=== PATIENT | male | born 1990 | race Caucasian/White ===

== ENCOUNTER 2019-09-07 09:15 | Inpatient (IN) | payer OTHER ==
[2019-09-07 09:56] VITALS: BMI 39.0
--- NOTE | 2019-09-07 11:23 | HP ---
COWS - Scale Resting Pulse: 4= MT > 121 Sweatin= Chills/Flushing Restless Observation: 1= Difficult to Sit Still Pupil Size: 1= Pupils >than Normal Bone or Joint Aches: 2= Severe Diffuse Aches Runny Nose/ Eye Tearin= Runny Nose/Eyes GI Upset > 30mins: 2= Nausea/Diarrhea Tremor Observation: 2= Slight Tremor Visible Yawning Observation: 1= 1-2x During Session Anxiety or Irritability: 2=Irritable/Anxious Goose Flesh Skin: 0=Smooth Skin COWS Score: 18 CIWA Score - Admission Criteria OASAS Guidelines: Admission for Medically Managed Detox: Requires at least one of the followin. CIWA greater than 12 2. Seizures within the past 24 hours 3. Delirium tremens within the past 24 hours 4. Hallucinations within the past 24 hours 5. Acute intervention needed for co occurring medical disorder 6. Acute intervention needed for co occurring psychiatric disorder 7. Severe withdrawal that cannot be handled at a lower level of care (continued vomiting, continued diarrhea, abnormal vital signs) requiring intravenous medication and/or fluids 8. Admitting History and Physical - Smoking History Smoking history: Unknown if ever smoked Admission ROS [facility] Chief Complaint: i need help to stop using oxycodone,metamphetamine,marijuana,cocaine Allergies/Adverse Reactions: Allergies Allergy/AdvReac Type Severity Reaction Status Date / Time ciprofloxacin AdvReac Rash Verified 09/07/19 09:46 metronidazole [From Flagyl] AdvReac Rash Verified 09/07/19 09:46 History of Present Illness: this 29 years old male with oxycodone,cocaine,marijuana and methamphetamine, seeking help to stop ,would like to better himself, last admission in [facility]09/27/10 to 10/02/10 denies seizure syncope in the past nicotine dependence hypertension no medication anxiety,depression,insomnia plan for rehab after detox no significant period of sobriety Exam Limitations: No Limitations - Ebola screening Have you traveled outside of the country in the last 21 days: No (N) Have you had contact with anyone from an Ebola affected area: No Do you have a fever: No - Review of Systems Constitutional: Chills, Night Sweats, Changes in sleep EENT: reports: Tearing, Nose Congestion Respiratory: reports: No Symptoms reported Cardiac: reports: Palpitations GI: reports: Diarrhea, Nausea, Abdominal cramping : reports: No Symptoms Reported Musculoskeletal: reports: Back Pain, Joint Pain, Muscle Pain, Joint Stiffness Integumentary: reports: Dryness Neuro: reports: Headache, Tremors Endocrine: reports: No Symptoms Reported Hematology: reports: No Symptoms Reported Psychiatric: reports: Anxious, Depressed, other (insomnia) Other Systems: Reviewed and Negative Patient History - Patient Medical History Hx Anemia: No Hx Asthma: No Hx Chronic Obstructive Pulmonary Disease (COPD): No Hx Cancer: No Hx Cardiac Disorders: No Hx Congestive Heart Failure: No Hx Hypertension: Yes (no medication) Hx Hypercholesterolemia: No Hx Pacemaker: No HX Cerebrovascular Accident: No Hx Seizures: No Hx Dementia: No Hx Diabetes: No Hx Gastrointestinal Disorders: No Hx Liver Disease: No Hx Genitourinary Disorders: No Hx Sexually Transmitted Disorders: No Hx Renal Disease (ESRD): No Hx Thyroid Disease: No Hx Human Immunodeficiency Virus (HIV): No (last 2017 negagive) Hx Hepatitis C: No Hx Depression: Yes (anxiety,insomnia) Hx Suicide Attempt: No Hx Bipolar Disorder: No Hx Schizophrenia: No Other Medical History: no suicidal.no homicidal - Patient Surgical History Hx Appendectomy: Yes (2014 at [facility]) - PPD History Previous Implant?: Yes Documented Results: Negative w/o proof Implanted On Prior [facility] Admission?: No PPD to be Administered?: No - Smoking Cessation Smoking history: Current every day smoker Have you smoked in the past 12 months: Yes Cigars Per Day: 0 Hx Chewing Tobacco Use: No Initiated information on smoking cessation: Yes 'Breaking Loose' booklet given: 09/07/19 - Substance & Tx. History Hx Alcohol Use: No Hx Substance Use: Yes Substance Use Type: Cocaine, Marijuana, Opiates Hx Substance Use Treatment: Yes (09/27/10 to 10/02/10 [facility]) - Substances abused Marijuana/Hashish Substance route: Smoking Frequency: 3-6 times per week Amount used: 1 GRAM Age of first use: 13 Date of last use: 09/05/19 Methamphetamine Substance route: Smoking Frequency: 1-3 times last 30 days Amount used: 2-3 GRAMS Age of first use: 28 Date of last use: 09/06/19 Other Other (specify): OXYCODONE Substance route: Oral Frequency: Daily Amount used: 80 MG TO 100 MG Age of first use: 19 Date of last use: 09/06/19 Cocaine Substance route: Injection Frequency: 3-6 times per week Amount used: 3 GRAMS Age of first use: 13 Date of last use: 08/31/19 Admission Physical Exam [facility] - Vital Signs Vital Signs: Vital Signs - 24 hr 09/07/19 09:47 Temperature 98.0 F Pulse Rate 133 H Respiratory 20 Rate Blood Pressure 170/85 - Physical General Appearance: Yes: Moderate Distress, Tremorous, Irritable, Sweating, Anxious HEENTM: Yes: Normal ENT Inspection, SALMA, Pharynx Normal Respiratory: Yes: Lungs Clear, Normal Breath Sounds, No Respiratory Distress Neck: Yes: Within Normal Limits, Supple, Trachea in good position Breast: Yes: Within Normal Limits Cardiology: Yes: Tachycardia Abdominal: Yes: Within Normal Limits, Normal Bowel Sounds, Non Tender, Soft Genitourinary: Yes: Within Normal Limits Back: Yes: Muscle Spasm Musculoskeletal: Yes: Within Normal Limits, Back pain, Muscle Pain Extremities: Yes: Tremors Neurological: Yes: retail equipment associate II-XII NML intact, Fully Oriented, Alert, Motor Strength 5/5 Integumentary: Yes: Dry Lymphatic: Yes: Within Normal Limits - Diagnostic (1) Opioid dependence with withdrawal Current Visit: Yes Status: Acute (2) Cocaine dependence Current Visit: Yes Status: Acute (3) Cannabis dependence Current Visit: Yes Status: Acute (4) Methamphetamine abuse Current Visit: Yes Status: Acute (5) Syncope Current Visit: Yes Status: Acute (6) Tachycardia Current Visit: Yes Status: Acute (7) Hypertension Current Visit: Yes Status: Acute (8) Dehydration Current Visit: Yes Status: Acute (9) Insomnia secondary to depression with anxiety Current Visit: Yes Status: Acute (10) Nicotine dependence Current Visit: Yes Status: Acute Cleared for Admission [facility] - Detox or Rehab [facility] Level of Care: Medically Managed Detox Regimen/Protocol: Methadone Breathalyzer - Breathalyzer Breathalyzer: 0 Urine Drug Screen - Test Device Lot number: [id number] Expiration date: 03/12/21 - Control Is test valid?: Yes - Results Drug screen NEGATIVE: No Urine drug screen results: THC-Marijuana, MET-Methamphetamine, AMP-Amphetamines , MDMA-Ecstasy Inpatient Rehab Admission - Rehab Decision to Admit Inpatient rehab admission?: No
[2019-09-07] MEDS ORDERED: MENTHOL/PHENOL 1 EACH UD MM PRN (11:40)
[2019-09-07] MEDS ORDERED: ACETAMINOPHEN 325 MG TABLET (FP) PO PRN ×2 (11:40)
[2019-09-07] MEDS ORDERED: MAGNESIUM HYDROX 2400MG/30ML ORAL SUSPENSION 30 ML CUP PO PRN (11:40)
[2019-09-07] MEDS ORDERED: NICOTINE POLACRILEX 2 MG GUM BUC PRN (11:40)
[2019-09-07] MEDS ORDERED: MAGNESIUM CITRATE 300 ML BOTTLE PO PRN (11:40)
[2019-09-07] MEDS ORDERED: cloNIDine HCL 0.1 MG TABLET PO PRN (11:40)
[2019-09-07] MEDS ORDERED: IBUPROFEN 400 MG TABLET (FP) PO PRN (11:40)
[2019-09-07] MEDS ORDERED: BISMUTH SUBSALICYLATE 524 MG/30 ML UD PO PRN (11:40)
[2019-09-07] MEDS ORDERED: cloNIDine HCL 0.1 MG TABLET PO ONE (11:48)
--- NOTE | 2019-09-07 12:34 | PN ---
BHS Progress Note Note: urine fro drug screen showed positive for thc,methamphetamine,oxycodone,mdma
[2019-09-07] MEDS: diazePAM 5 MG TABLET PO PRN ×2 (12:46→22:43)
[2019-09-07] MEDS: NICOTINE 21 MG/24 HOURS TOPICAL PATCH TD SCH (12:46)
[2019-09-07] MEDS ORDERED: METHADONE HCL 10 MG TABLET (FOR DETOX USE ONLY) PO ONE (13:30)
--- NOTE | 2019-09-07 14:09 | EKG ---
Test Reason : Blood Pressure : / mmHG Vent. Rate : 123 BPM Atrial Rate : 123 BPM P-R Int : 150 ms QRS Dur : 078 ms QT Int : 310 ms P-R-T Axes : 067 012 033 degrees QTc Int : 443 ms SINUS TACHYCARDIA NONSPECIFIC T WAVE ABNORMALITY ABNORMAL ECG NO PREVIOUS ECGS AVAILABLE Confirmed by MATTHIAS VAZQUEZ, ABIGAIL ([id number]) on 09/07/2019 2:08:52 PM Referred By: Confirmed By:ABIGAIL RIZZO MD
[2019-09-07] MEDS: THIAMINE HCL 100 MG TABLET (FP) PO SCH (22:40)
[2019-09-07] MEDS: MELATONIN 5 MG TABLETS PO PRN (22:41)
[2019-09-07] MEDS: MAG HYDROX/AL HYDROX/SIMETH 30 ML UNIT-DOSE CUP PO PRN (22:42)
[2019-09-07] MEDS: METHOCARBAMOL 500 MG TABLET PO PRN (22:43)
--- NOTE | 2019-09-08 09:13 | PN ---
BHS COWS - Scale Resting Pulse: 1= [place] 81-100 Sweatin= No chills or Flushing Restless Observation: 0= Sits Still Pupil Size: 1= Pupils >than Normal Bone or Joint Aches: 2= Severe Diffuse Aches Runny Nose/ Eye Tearin= Nasal Congestion GI Upset > 30mins: 1= Stomach Cramp Tremor Observation of Outstretched Hands: 2= Slight Tremor Visible Yawning Observation: 1= 1-2x During Session Anxiety or Irritability: 2=Irritable/Anxious Goose Flesh Skin: 3=Piloerection COWS Score: 14 BHS Progress Note (SOAP) Subjective: 29 years old male admitted on 09/07/19 for opiate withdrawal sx management treated with methadone detox regimen tolerate well at this time patient prefers terminal superintendent opiate rehab that he has supportive family and friends sitting on the edge of the bed eating breakfast no trouble chewing nor swallowing food speech clearly coherently Objective: 09/08/19 09:12 Vital Signs Temperature 97.0 F L 09/08/19 09:01 Pulse Rate 87 09/08/19 09:01 Respiratory Rate 18 09/08/19 09:01 Blood Pressure 124/79 09/08/19 09:01 O2 Sat by Pulse Oximetry (%) 09/08/19 09:13 lab pending Assessment: 09/08/19 09:14 opiate withdrawal sx discuss medication assisted treatment program Plan: continue methadone detox regimen pickling grader narcan from pharmacy
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
[2019-09-08] MEDS ORDERED: METHADONE HCL 10 MG TABLET (FOR DETOX USE ONLY) ONE (09:38)
[2019-09-08] MEDS ORDERED: METHADONE HCL 5 MG TABLET (FOR DETOX USE ONLY) ONE (09:39)
[2019-09-08] MEDS ORDERED: METHADONE (DETOX) 20 MG, METHADONE (DETOX) 5 MG PO ONE (10:00)
[2019-09-08] MEDS: diazePAM 5 MG TABLET PO PRN ×2 (10:18→22:05)
[2019-09-08] MEDS: PRENATAL VITAMINS W/ FOLIC ACID TABLET (FP) PO SCH (10:18)
[2019-09-08] MEDS: NICOTINE 21 MG/24 HOURS TOPICAL PATCH TD SCH (10:19)
[2019-09-08] MEDS: MAG HYDROX/AL HYDROX/SIMETH 30 ML UNIT-DOSE CUP PO PRN (13:41)
[2019-09-08] MEDS: THIAMINE HCL 100 MG TABLET (FP) PO SCH (22:05)
[2019-09-08] MEDS: hydrOXYzine PAMOATE 25 MG CAPSULE (FP) PO PRN (22:05)
[2019-09-08] MEDS: MELATONIN 5 MG TABLETS PO PRN (22:07)
[2019-09-09] MEDS: diazePAM 5 MG TABLET PO PRN ×3 (08:30→22:00)
[2019-09-09] MEDS ORDERED: METHADONE HCL 10 MG TABLET (FOR DETOX USE ONLY) PO ONE (10:00)
[2019-09-09] MEDS: PRENATAL VITAMINS W/ FOLIC ACID TABLET (FP) PO SCH (10:08)
[2019-09-09] MEDS: NICOTINE 21 MG/24 HOURS TOPICAL PATCH TD SCH (10:09)
[2019-09-09] MEDS: METHOCARBAMOL 500 MG TABLET PO PRN (10:11)
[2019-09-09] MEDS: MAG HYDROX/AL HYDROX/SIMETH 30 ML UNIT-DOSE CUP PO PRN (12:48)
--- NOTE | 2019-09-09 13:26 | PN ---
BHS COWS - Scale Resting Pulse: 1= [place] 81-100 Sweatin= Chills/Flushing Restless Observation: 0= Sits Still Pupil Size: 1= Pupils >than Normal Bone or Joint Aches: 1= Mild Discomfort Runny Nose/ Eye Tearin= Nasal Congestion GI Upset > 30mins: 2= Nausea/Diarrhea Tremor Observation of Outstretched Hands: 1= Tremor [place], Not Seen Yawning Observation: 2= >3x During Session Anxiety or Irritability: 1=Feels Anxious/Irritable Goose Flesh Skin: 0=Smooth Skin COWS Score: 11 S Progress Note (SOAP) Subjective: 29 years old male admitted on 09/07/19 for opiate withdrawal sx management treated with methadone detox regimen c/o GI distress "using too many different drugs" discontinue motrin begin pepcid bid carafate at 1800 today patient denies black stool denies vomiting blood denies dizziness patient refuses admission blood work on 09/08/19 reorder lab work today discuss with phlebotomy blood will be drawn today Objective: 09/09/19 13:27 Vital Signs Temperature 98.9 F 09/09/19 09:11 Pulse Rate 89 09/09/19 09:11 Respiratory Rate 18 09/09/19 09:11 Blood Pressure 108/64 09/09/19 09:11 O2 Sat by Pulse Oximetry (%) Assessment: 09/09/19 13:33 opiate withdrawal sx Plan: continue methadone detox regimen
[2019-09-09] MEDS: FAMOTIDINE 10 MG TABLET PO SCH ×2 (15:41→21:58)
[2019-09-09] MEDS ORDERED: SUCRALFATE 1 GM TABLET (FP) PO ONE (17:00)
[2019-09-09 17:04] LABS: HEMATOCRIT 43.7 % (35.4-49); MCH 29.6 pg (25.7-33.7); MCHC 34.2 g/dl (32.0-35.9); MEAN CELL VOLUME 86.4 fl (80-96); MEAN PLT VOLUME 10.2 fl (7.5-11.1); PLATELET COUNT 167 K/MM3 (134-434); RBC 5.06 M/mm3 (4.00-5.60); RDW 13.7 % (11.9-15.9); WHITE BLOOD COUNT 6.8 K/mm3 (4.0-10.0)
[2019-09-09 17:09] LABS: ALBUMIN 3.4 g/dl (3.4-5.0); BILIRUBIN,TOTAL 0.4 mg/dL (0.2-1); BLOOD UREA NITROGEN 14.1 mg/dL (7-18); CALCIUM 8.4 mg/dL (8.5-10.1); CREATININE 0.8 mg/dL (0.55-1.3); POTASSIUM 3.6 mmol/L (3.5-5.1); TOT PROT 5.9 g/dl (6.4-8.2)
[2019-09-09] MEDS: THIAMINE HCL 100 MG TABLET (FP) PO SCH (21:58)
[2019-09-09] MEDS: MELATONIN 5 MG TABLETS PO PRN (21:59)
[2019-09-10] MEDS ORDERED: METHADONE HCL 10 MG TABLET (FOR DETOX USE ONLY) ONE (09:13)
[2019-09-10] MEDS ORDERED: METHADONE HCL 5 MG TABLET (FOR DETOX USE ONLY) ONE (09:13)
[2019-09-10] MEDS: diazePAM 5 MG TABLET PO PRN (09:15)
[2019-09-10] MEDS ORDERED: METHADONE (DETOX) 10 MG, METHADONE (DETOX) 5 MG PO ONE (10:00)
[2019-09-10] MEDS: FAMOTIDINE 10 MG TABLET PO SCH ×2 (10:09→22:04)
[2019-09-10] MEDS: PRENATAL VITAMINS W/ FOLIC ACID TABLET (FP) PO SCH (10:09)
[2019-09-10] MEDS: NICOTINE 21 MG/24 HOURS TOPICAL PATCH TD SCH (10:10)
[2019-09-10] MEDS: MAG HYDROX/AL HYDROX/SIMETH 30 ML UNIT-DOSE CUP PO PRN (12:41)
--- NOTE | 2019-09-10 13:31 | PN ---
BHS COWS - Scale Resting Pulse: 0= [place] 80 or Below Sweatin= No chills or Flushing Restless Observation: 1= Difficult to Sit Still Pupil Size: 0= Normal to Room Light Bone or Joint Aches: 1= Mild Discomfort Runny Nose/ Eye Tearin= Runny Nose/Eyes GI Upset > 30mins: 2= Nausea/Diarrhea Tremor Observation of Outstretched Hands: 2= Slight Tremor Visible Yawning Observation: 1= 1-2x During Session Anxiety or Irritability: 1=Feels Anxious/Irritable Goose Flesh Skin: 0=Smooth Skin COWS Score: 10 S Progress Note (SOAP) Subjective: alert,irritable,anxious,interrupted sleep,pain inm the body and back Objective: 09/10/19 13:30 Vital Signs Temperature 96.8 F L 09/10/19 09:04 Pulse Rate 77 09/10/19 09:04 Respiratory Rate 18 09/10/19 09:04 Blood Pressure 115/79 09/10/19 09:04 O2 Sat by Pulse Oximetry (%) Assessment: 09/10/19 13:30 wwithdrawal symptom Plan: continue detox,methadone regimen
[2019-09-10] MEDS: hydrOXYzine PAMOATE 25 MG CAPSULE (FP) PO PRN ×2 (14:43→22:06)
[2019-09-10 17:11] LABS: PH,URINE 8.5 (5.0-8.0); URINE APPEARANCE TURBID; URINE BILIRUBIN NEGATIVE (NEGATIVE); URINE COLOR YELLOW; URINE GLUCOSE (UA) NEGATIVE (NEGATIVE); URINE KETONE NEGATIVE (NEGATIVE); URINE LEUK ESTERASE NEGATIVE (NEGATIVE); URINE NITRITE NEGATIVE (NEGATIVE); URINE PROTEIN NEGATIVE (NEGATIVE); URINE UROBILINOGEN 0.2 mg/dL (0.2-1.0)
[2019-09-10] MEDS: THIAMINE HCL 100 MG TABLET (FP) PO SCH (22:04)
[2019-09-10] MEDS: MELATONIN 5 MG TABLETS PO PRN (22:05)
[2019-09-11] MEDS ORDERED: METHADONE HCL 10 MG TABLET (FOR DETOX USE ONLY) PO ONE (10:00)
[2019-09-11] MEDS: PRENATAL VITAMINS W/ FOLIC ACID TABLET (FP) PO SCH (10:14)
[2019-09-11] MEDS: NICOTINE 21 MG/24 HOURS TOPICAL PATCH TD SCH (10:15)
[2019-09-11] MEDS: FAMOTIDINE 10 MG TABLET PO SCH ×2 (10:16→22:02)
--- NOTE | 2019-09-11 13:59 | PN ---
BHS COWS - Scale Resting Pulse: 1= [place] 81-100 Sweatin= Chills/Flushing Restless Observation: 0= Sits Still Pupil Size: 0= Normal to Room Light Bone or Joint Aches: 1= Mild Discomfort Runny Nose/ Eye Tearin= Nasal Congestion GI Upset > 30mins: 0= None Tremor Observation of Outstretched Hands: 1= Tremor [place], Not Seen Yawning Observation: 0= None Anxiety or Irritability: 1=Feels Anxious/Irritable Goose Flesh Skin: 0=Smooth Skin COWS Score: 6 BHS Progress Note (SOAP) Subjective: 29 years old male admitted on 09/07/19 for opiate withdrawal sx management treated with methadone detox regimen patient tolerate well less body ache sleep better at night Objective: 09/11/19 13:58 Vital Signs Temperature 96.5 F L 09/11/19 13:08 Pulse Rate 83 09/11/19 13:08 Respiratory Rate 18 09/11/19 13:08 Blood Pressure 114/76 09/11/19 13:08 O2 Sat by Pulse Oximetry (%) Laboratory Last Values WBC 6.8 K/mm3 (4.0-10.0) 09/09/19 12:55 RBC 5.06 M/mm3 (4.00-5.60) 09/09/19 12:55 Hgb 15.0 GM/dL (11.7-16.9) 09/09/19 12:55 Hct 43.7 % (35.4-49) 09/09/19 12:55 MCV 86.4 fl (80-96) 09/09/19 12:55 MCH 29.6 pg (25.7-33.7) 09/09/19 12:55 MCHC 34.2 g/dl (32.0-35.9) 09/09/19 12:55 RDW 13.7 % (11.9-15.9) 09/09/19 12:55 Plt Count 167 K/MM3 (134-434) 09/09/19 12:55 MPV 10.2 fl (7.5-11.1) 09/09/19 12:55 Sodium 140 mmol/L (136-145) 09/09/19 12:55 Potassium 3.6 mmol/L (3.5-5.1) 09/09/19 12:55 Chloride 104 mmol/L (98-107) 09/09/19 12:55 Carbon Dioxide 30 mmol/L (21-32) 09/09/19 12:55 Anion Gap 6 MMOL/L (8-16) L 09/09/19 12:55 BUN 14.1 mg/dL (7-18) 09/09/19 12:55 Creatinine 0.8 mg/dL (0.55-1.3) 09/09/19 12:55 Est GFR (CKD-EPI)AfAm 139.91 09/09/19 12:55 Est GFR (CKD-EPI)NonAf 120.72 09/09/19 12:55 Random Glucose 107 mg/dL (74-106) H 09/09/19 12:55 Calcium 8.4 mg/dL (8.5-10.1) L 09/09/19 12:55 Total Bilirubin 0.4 mg/dL (0.2-1) 09/09/19 12:55 AST 11 U/L (15-37) L 09/09/19 12:55 ALT 31 U/L (13-61) 09/09/19 12:55 Alkaline Phosphatase 59 U/L (45-117) 09/09/19 12:55 Total Protein 5.9 g/dl (6.4-8.2) L 09/09/19 12:55 Albumin 3.4 g/dl (3.4-5.0) 09/09/19 12:55 Urine Color Yellow 09/10/19 13:30 Urine Appearance Turbid 09/10/19 13:30 Urine pH 8.5 (5.0-8.0) H 09/10/19 13:30 Ur Specific [place] 1.020 (1.010-1.035) 09/10/19 13:30 Urine Protein Negative (NEGATIVE) 09/10/19 13:30 Urine Glucose (UA) Negative (NEGATIVE) 09/10/19 13:30 Urine Ketones Negative (NEGATIVE) 09/10/19 13:30 Urine Blood Negative (NEGATIVE) 09/10/19 13:30 Urine Nitrite Negative (NEGATIVE) 09/10/19 13:30 Urine Bilirubin Negative (NEGATIVE) 09/10/19 13:30 Urine Urobilinogen 0.2 mg/dL (0.2-1.0) 09/10/19 13:30 Ur Leukocyte Esterase Negative (NEGATIVE) 09/10/19 13:30 RPR Titer Nonreactive (NONREACTIVE) 09/09/19 12:55 HIV 1&2 Antibody Screen Negative 09/09/19 12:55 HIV P24 Antigen Negative 09/09/19 12:55 lab noted Assessment: 09/11/19 13:58 opiate withdrawal sx Plan: continue methadone detox regimen
[2019-09-11 20:26] VITALS: TEMP 98.7
[2019-09-11] MEDS: THIAMINE HCL 100 MG TABLET (FP) PO SCH (22:01)
[2019-09-11] MEDS: MELATONIN 5 MG TABLETS PO PRN (22:02)
[2019-09-12] MEDS ORDERED: METHADONE HCL 5 MG TABLET (FOR DETOX USE ONLY) PO ONE (06:00)
[2019-09-12 06:10] VITALS: BP 120/80; PULSE 73
--- NOTE | 2019-09-12 14:34 | DS ---
[facility] Detox Discharge Summary Admission Date: 09/07/19 Discharge Date: 09/12/19 - History Present History: Opioid Dependence Additional Comments: 29 years old male admitted on 09/07/19 for opiate withdrawal sx management treated with methadone detox regimen patient tolerated well patient is alert oriented x 3 respiratory clear lung bilaterally on auscultation abdomen soft round obese no rebound tenderness skin warm dry - Physical Exam Results Vital Signs: Vital Signs Temperature 98.7 F 09/12/19 06:10 Pulse Rate 73 09/12/19 06:10 Respiratory Rate 18 09/12/19 06:10 Blood Pressure 120/80 09/12/19 06:10 O2 Sat by Pulse Oximetry (%) Pertinent Admission Physical Exam Findings: opiate withdrawal sx Laboratory Last Values WBC 6.8 K/mm3 (4.0-10.0) 09/09/19 12:55 RBC 5.06 M/mm3 (4.00-5.60) 09/09/19 12:55 Hgb 15.0 GM/dL (11.7-16.9) 09/09/19 12:55 Hct 43.7 % (35.4-49) 09/09/19 12:55 MCV 86.4 fl (80-96) 09/09/19 12:55 MCH 29.6 pg (25.7-33.7) 09/09/19 12:55 MCHC 34.2 g/dl (32.0-35.9) 09/09/19 12:55 RDW 13.7 % (11.9-15.9) 09/09/19 12:55 Plt Count 167 K/MM3 (134-434) 09/09/19 12:55 MPV 10.2 fl (7.5-11.1) 09/09/19 12:55 Sodium 140 mmol/L (136-145) 09/09/19 12:55 Potassium 3.6 mmol/L (3.5-5.1) 09/09/19 12:55 Chloride 104 mmol/L (98-107) 09/09/19 12:55 Carbon Dioxide 30 mmol/L (21-32) 09/09/19 12:55 Anion Gap 6 MMOL/L (8-16) L 09/09/19 12:55 BUN 14.1 mg/dL (7-18) 09/09/19 12:55 Creatinine 0.8 mg/dL (0.55-1.3) 09/09/19 12:55 Est GFR (CKD-EPI)AfAm 139.91 09/09/19 12:55 Est GFR (CKD-EPI)NonAf 120.72 09/09/19 12:55 Random Glucose 107 mg/dL (74-106) H 09/09/19 12:55 Calcium 8.4 mg/dL (8.5-10.1) L 09/09/19 12:55 Total Bilirubin 0.4 mg/dL (0.2-1) 09/09/19 12:55 AST 11 U/L (15-37) L 09/09/19 12:55 ALT 31 U/L (13-61) 09/09/19 12:55 Alkaline Phosphatase 59 U/L (45-117) 09/09/19 12:55 Total Protein 5.9 g/dl (6.4-8.2) L 09/09/19 12:55 Albumin 3.4 g/dl (3.4-5.0) 09/09/19 12:55 Urine Color Yellow 09/10/19 13:30 Urine Appearance Turbid 09/10/19 13:30 Urine pH 8.5 (5.0-8.0) H 09/10/19 13:30 Ur Specific [place] 1.020 (1.010-1.035) 09/10/19 13:30 Urine Protein Negative (NEGATIVE) 09/10/19 13:30 Urine Glucose (UA) Negative (NEGATIVE) 09/10/19 13:30 Urine Ketones Negative (NEGATIVE) 09/10/19 13:30 Urine Blood Negative (NEGATIVE) 09/10/19 13:30 Urine Nitrite Negative (NEGATIVE) 09/10/19 13:30 Urine Bilirubin Negative (NEGATIVE) 09/10/19 13:30 Urine Urobilinogen 0.2 mg/dL (0.2-1.0) 09/10/19 13:30 Ur Leukocyte Esterase Negative (NEGATIVE) 09/10/19 13:30 RPR Titer Nonreactive (NONREACTIVE) 09/09/19 12:55 HIV 1&2 Antibody Screen Negative 09/09/19 12:55 HIV P24 Antigen Negative 09/09/19 12:55 lab noted - Treatment Hospital Course: Detox Protocol Followed, Detoxed Safely, Responded well, Discharged Condition Good, Rehab Referral Accepted Patient [facility] - Medication Discharge Medications: Ambulatory Orders Naloxone HCl [Narcan] 4 mg NS ASDIR PRN #1 spray 09/08/19 - Diagnosis (1) Opioid dependence with withdrawal Status: Acute (2) Hypertension Status: Chronic Qualifiers: Hypertension type: essential hypertension Qualified Code(s): I10 - Essential (primary) hypertension (3) Nicotine dependence Status: Acute Qualifiers: Nicotine product type: cigarettes Substance use status: in withdrawal Qualified Code(s): F17.213 - Nicotine dependence, cigarettes, with withdrawal - AMA Did Patient Leave Against Medical Advice: No COWS (PN) - Opiate Withdrawal Resting Pulse: 0= [place] 80 or Below Sweatin= Chills/Flushing Restless Observation: 0= Sits Still Pupil Size: 0= Normal to Room Light Bone or Joint Aches: 0= None Runny Nose/ Eye Tearin= None GI Upset > 30mins: 0= None Tremor Observation of Outstretched Hands: 1= Tremor [place], Not Seen Yawning Observation: 0= None Anxiety or Irritability: 1=Feels Anxious/Irritable Goose Flesh Skin: 0=Smooth Skin COWS Score: 3
== END 2019-09-12 08:47 | disposition home or self-care (01) | DRG 773 ==
LOC: YASAS 09:15 → Y3N 11:59
PROVIDERS: ADMIT Allergy & Immunology; ATTEND Allergy & Immunology
PROC: HZ2ZZZZ Detoxification Services for Substance Abuse Treatment (ICD-10-PCS; principal; 2019-09-07)
DX: F11.23 Opioid dependence with withdrawal (principal); F14.20 Cocaine dependence, uncomplicated; F15.20 Other stimulant dependence, uncomplicated; F12.20 Cannabis dependence, uncomplicated; F17.210 Nicotine dependence, cigarettes, uncomplicated; F19.280 Other psychoactive substance dependence with psychoactive substance-induced anxiety disorder; F19.282 Other psychoactive substance dependence with psychoactive substance-induced sleep disorder; F41.9 Anxiety disorder, unspecified; F32.9 Major depressive disorder, single episode, unspecified; F90.9 Attention-deficit hyperactivity disorder, unspecified type; F51.05 Insomnia due to other mental disorder; E86.0 Dehydration; I10 Essential (primary) hypertension; R00.0 Tachycardia, unspecified; R55 Syncope and collapse; Z98.890 Other specified postprocedural states; Z88.1 Allergy status to other antibiotic agents
CPT/HCPCS: 36415; 80053; 81003; 85027; 86593; 87389; 93005; 93010; J0735